=== PATIENT | male | born 1970 | race Caucasian/White ===

== ENCOUNTER 2022-05-19 18:23 | Inpatient (IN) | payer OTHER ==
[~2022-05-19] VITALS: Ht 182.9 cm; Wt 99.3 kg
[2022-05-19 18:29] VITALS: BP 129/74
[2022-05-19] MEDS ORDERED: NITROGLYCERIN 0.4 MG TAB SL ONE (19:00)
[2022-05-19] MEDS ORDERED: FUROSEMIDE 20 MG/2 ML VIAL IVP ONE (19:00)
[2022-05-19 19:14] LABS: BASOPHILS % (AUTO) 0.6 % (0.0-2.0); EOSINOPHILS # (AUTO) 0.2 K/uL (0-0.4); EOSINOPHILS % (AUTO) 2.9 % (0.0-4.0); HEMATOCRIT 40.1 % (36-52); HEMOGLOBIN 13.6 g/dL (12.0-18.0); LYMPHOCYTES # (AUTO) 2.4 K/uL (2.0-11.5); LYMPHOCYTES % (AUTO) 35.2 % (20.5-51.1); MEAN CORPUSCULAR HEMOGLOBIN 31 pg (27-31); MEAN CORPUSCULAR HGB CONC 34 g/dL (33-37); MONOCYTES # (AUTO) 0.6 K/uL (0.8-1.0); MONOCYTES % (AUTO) 8.2 % (1.7-9.3); NEUTROPHILS # (AUTO) 3.6 K/uL (1.8-7.7); NEUTROPHILS % (AUTO) 53.1 % (42.2-75.2); PLATELET COUNT (AUTO) 212 K/uL (140-450); RED BLOOD CELL COUNT(AUTO) 4.41 MIL/uL (4.20-6.10); RED CELL DISTRIBUTION WIDTH 13.6 % (11.6-13.7); WHITE BLOOD COUNT (AUTO) 6.8 K/uL (4.8-10.8)
--- NOTE | 2022-05-19 19:26 | NUR ---
AT THIS TIME PT DENIES ANY C/P. DID NOT GIVE NITRO AT THIS TIME. BRAYAN TOUSSAINT MADE AWARE.
[2022-05-19 19:34] LABS: ALBUMIN 3.2 g/dL (3.4-5.0); ANION GAP 10.4 (8-16); CARBON DIOXIDE 29.9 mmol/L (21-32); CREATININE 0.9 mg/dL (0.6-1.3); POTASSIUM 4.3 mmol/L (3.5-5.1); TOTAL BILIRUBIN 0.6 mg/dL (0.0-1.0)
[2022-05-19 19:37] LABS: MAGNESIUM 1.7 mg/dL (1.8-2.4)
[2022-05-19] MEDS ORDERED: MAG SULF 2000 MG/WATER PREMIX 50 ML IV ONE (19:45)
[2022-05-19] MEDS ORDERED: DILTIAZEM 25 MG/5 ML VIAL IVP ONE (20:20)
--- NOTE | 2022-05-19 20:20 | NUR ---
SWABBED PATIENT AND SENT TO LAB
[2022-05-19] MEDS ORDERED: ONDANSETRON 4 MG/2 ML VIAL IVP PRN (20:55)
[2022-05-19] MEDS ORDERED: ACETAMINOPHEN 325 MG TAB PO PRN (20:55)
[2022-05-19] MEDS ORDERED: ZOLPIDEM 5 MG TAB PO PRN (20:55)
[2022-05-19] MEDS ORDERED: HYDROcodone/APAP 5/325 MG 1 TAB TAB PO PRN (20:55)
[2022-05-19] MEDS ORDERED: LORazepam 1 MG TAB PO PRN (20:55)
--- NOTE | 2022-05-19 20:56 | NUR ---
PLACED 2 L O2 VIA NC FOR COMFORT. PT OXYGEN SATURATION 89%
[2022-05-19 21:26] LABS: BARBITURATE, URINE NEGATIVE ng/ml (NEG <=200); BENZODIAZEPINE, URINE NEGATIVE ng/mL (NEG <=200); CANNABINOID, URINE NEGATIVE ng/mL (NEG <=50); COCAINE, URINE NEGATIVE ng/mL (NEG <=300); OPIATE, URINE NEGATIVE ng/mL (NEG <=2000); PHENCYCLIDINE SCREEN,URINE NEGATIVE ng/mL (NEG <=25)
--- NOTE | 2022-05-19 21:29 | NUR ---
Patient will be admitted to care of Nash TOUSSAINT. Admited to Telemetry. Will go to room 111a. Belongings list completed. Report to David VELAZQUEZ.
[2022-05-19 21:33] VITALS: BP 105/79
--- NOTE | 2022-05-19 21:35 | NUR ---
RECEIVED PT FROM ER VIA [facility]. PT IS AAOX4 ON RA. PT WAS ON 2L NC IN THE ER WHEN HE WAS SATING 89%. PT IS CURRENTLY SATING 98%. PT IS AMBULATORY. GAIT STEADY. PT HAS LEFT AC 20 GAUGE WITH MAG RIDER CURRENTLY RUNNING. SKIN INTACT. PT EDUCATED GREY WASHER LIGHT SYSTEM. PLAN OF CARE DISCUSSED. WILL CONTINUE TO MONITOR THE PT.
[2022-05-19] MEDS ORDERED: AMLO10TA PO (21:40)
[2022-05-19] MEDS ORDERED: FURO-572 PO (21:40)
[2022-05-19] MEDS ORDERED: LISI2.5T12 PO (21:40)
[2022-05-19] MEDS: DILTIAZEM 30 MG TAB PO SCH (23:30)
--- NOTE | 2022-05-19 23:38 | NUR ---
SCHEDULE MEDICATION GIVEN. NO ADVERSE REACTION NOTED. PT HAS NO COMPLAINS AT THIS TIME. VITAL SIGNS. STABLE. WILL CONTINUE TO MONITOR THE PT.
[2022-05-20] VITALS: BP 118/88
--- NOTE | 2022-05-20 01:05 | NUR ---
PT IS SLEEPING COMFORTABLY IN BED. PT NOT IN ANY RESPIRATORY DISTRESS. VISIBLE RISE AND CHEST FALL. CALL LIGHT WITHIN REACH. WILL CONTINUE TO MONITOR THE PT.
--- NOTE | 2022-05-20 02:35 | NUR ---
PT OBSERVED. PT IS SLEEPING WITH NO ACUTE DISTRESS. VISIBLE RISE AND CHEST FALL. CALL LIGHT WITHIN REACH. WILL CONTINUE TO MONITOR THE PT.
[2022-05-20 04:00] VITALS: BP 118/94
[2022-05-20] MEDS: DILTIAZEM 30 MG TAB PO SCH ×2 (05:05→12:29)
--- NOTE | 2022-05-20 07:15 | NUR ---
ENDORSED PT TO DAY SHIFT RN MATTHEW FOR CONTINUITY OF CARE. PT IS STABLE.
--- NOTE | 2022-05-20 07:16 | NUR ---
RECEIVED BEDSIDE REPORT FROM NIGHTSHIFT MARCUS ZHANG. PT IS ON ROOM AIR. PT IS A&OX4 CURRENTLY AWAKE AND RESTING WITH NO S/S OF DISTRESS. PT HAS IV ON LEFT AC 20 GAUGE ON LEFT FOREARM SALINE LOCK PATENT AND INTACT. BED IN LOWEST POSITION, CALL LIGHT WITHIN REACH.
[2022-05-20 07:50] LABS: BASOPHILS # (AUTO) 0.1 K/uL (0.00-0.22); BASOPHILS % (AUTO) 0.7 % (0.0-2.0); EOSINOPHILS # (AUTO) 0.1 K/uL (0-0.4); LYMPHOCYTES # (AUTO) 2.2 K/uL (2.0-11.5); LYMPHOCYTES % (AUTO) 31.1 % (20.5-51.1); MEAN CORPUSCULAR HEMOGLOBIN 31 pg (27-31); MEAN CORPUSCULAR HGB CONC 34 g/dL (33-37); MEAN CORPUSCULAR VOLUME 90.4 fL (80-94); MONOCYTES # (AUTO) 0.6 K/uL (0.8-1.0); MONOCYTES % (AUTO) 8.2 % (1.7-9.3); NEUTROPHILS # (AUTO) 4.1 K/uL (1.8-7.7); PLATELET COUNT (AUTO) 210 K/uL (140-450); RED BLOOD CELL COUNT(AUTO) 4.54 MIL/uL (4.20-6.10); RED CELL DISTRIBUTION WIDTH 13.7 % (11.6-13.7); WHITE BLOOD COUNT (AUTO) 7.1 K/uL (4.8-10.8)
[2022-05-20 08:00] VITALS: BP 135/98
[2022-05-20 08:02] LABS: ALBUMIN 3.3 g/dL (3.4-5.0); ANION GAP 15.4 (8-16); CARBON DIOXIDE 25.5 mmol/L (21-32); CREATININE 0.8 mg/dL (0.6-1.3); POTASSIUM 3.9 mmol/L (3.5-5.1); TOTAL BILIRUBIN 0.9 mg/dL (0.0-1.0)
--- NOTE | 2022-05-20 08:28 | NUR ---
RECIEVED CRITICAL GLUCOSE LEVEL OF 443 FROM LAB. CHECKED PT'S FINGERSTICK GLUCOSE, GLUCOSE READ 372. PT DENIED ANY SYMPTOMS, AND DENIED ANY PRIOR HISTORY OF DIABETES MELLITUS. NOTIFIED DR. BURRIS, NEW ORDERS FOR ACHS ACCUCHECKS, AND INSULIN SLIDING SCALE GIVEN.
[2022-05-20] MEDS ORDERED: DEXTROSE 50% 50 ML SYR IVP PRN (08:30)
[2022-05-20] MEDS ORDERED: BLOOD GLUCOSE MONITORING 1 DEV DEV FS PRN (08:35)
[2022-05-20] MEDS: INSULIN LISPRO SLIDING SCALE 100 UNITS/ML VIAL SUBQ PRN ×3 (08:49→20:24)
[2022-05-20] MEDS: DOCUSATE SODIUM 100 MG GELCAP PO SCH (08:56)
[2022-05-20] MEDS: FUROSEMIDE 40 MG/4 ML VIAL IVP SCH ×3 (08:57→17:07)
[2022-05-20] MEDS ORDERED: ENOXAPARIN 40 MG/0.4 ML SYR SUBQ SCH (09:00)
[2022-05-20 12:00] VITALS: BP 129/94
[2022-05-20] MEDS: BLOOD GLUCOSE MONITORING 1 DEV DEV FS SCH ×3 (12:16→20:24)
--- NOTE | 2022-05-20 12:30 | NUR ---
PATIENT HAS BEEN SCREENED AND CATEGORIZED MODERATE NUTRITION RISK. PATIENT WILL BE SEEN WITHIN 3-5 DAYS OF ADMISSION. 05/22/[address]
--- NOTE | 2022-05-20 13:48 | NUR ---
LATE ENTRY- MAGNESIUM SULFATE DISCONTINUED AT 2128.
[2022-05-20 16:00] VITALS: BP 119/79
--- NOTE | 2022-05-20 19:18 | NUR ---
ENDORSED PT TO NIGHTSHIFT NURSE VICENTE FOR CONTINUITY OF CARE. PT IN STABLE CONDITION.
--- NOTE | 2022-05-20 19:20 | NUR ---
RECEIVED REPORT FROM MATTHEW FOR CONTINUITY OF CAR.E PT IS AAOX4 ON RA. PT IS NOT IN ANY ACUTE DISTRESS. PT HAS LEFT AC 20 GAUGE SALINE LOCK. PT ABLE TO AMBULATE. GAIT STEADY. PLAN OF CARE DISCUSSED. WILL CONTINUE TO MONITOR THE PT.
[2022-05-20 20:00] VITALS: BP 124/92
--- NOTE | 2022-05-20 20:30 | NUR ---
PT BLOOD GLUCOSE WAS 309. 8 UNITS OF HUMALOG GIVEN. NO OTHER COMPLAINS. VITAL SIGNS ARE STABLE.
[2022-05-21] VITALS: BP 129/95
--- NOTE | 2022-05-21 00:47 | NUR ---
PT IS SLEEPING COMFORTABLY IN BED. PT NOT IN ANY ACUTE DISTRESS. CALL LIGHT WITHIN REACH. WILL CONTINUE TO MONITOR THE PT.
--- NOTE | 2022-05-21 02:18 | NUR ---
PT IS SLEEPING COMFORTABLY IN BED. PT NOT IN ANY ACUTE DISTRESS. CALL LIGHT WITHIN REACH. WILL CONTINUE TO MONITOR THE PT.
[2022-05-21 04:00] VITALS: BP 123/93
--- NOTE | 2022-05-21 04:26 | NUR ---
PT IS SLEEPING COMFORTABLY IN BED. PT NOT IN ANY ACUTE DISTRESS. CALL LIGHT WITHIN REACH. WILL CONTINUE TO MONITOR THE PT.
[2022-05-21] MEDS: BLOOD GLUCOSE MONITORING 1 DEV DEV FS SCH ×2 (06:30→11:37)
[2022-05-21] MEDS: INSULIN LISPRO SLIDING SCALE 100 UNITS/ML VIAL SUBQ PRN ×2 (06:36→12:07)
[2022-05-21 07:06] LABS: BASOPHILS # (AUTO) 0.1 K/uL (0.00-0.22); BASOPHILS % (AUTO) 0.7 % (0.0-2.0); EOSINOPHILS # (AUTO) 0.2 K/uL (0-0.4); EOSINOPHILS % (AUTO) 3.2 % (0.0-4.0); HEMATOCRIT 43.2 % (36-52); HEMOGLOBIN 14.7 g/dL (12.0-18.0); LYMPHOCYTES # (AUTO) 2.5 K/uL (2.0-11.5); LYMPHOCYTES % (AUTO) 32.6 % (20.5-51.1); MEAN CORPUSCULAR HEMOGLOBIN 31 pg (27-31); MEAN CORPUSCULAR HGB CONC 34 g/dL (33-37); MEAN CORPUSCULAR VOLUME 90.1 fL (80-94); MONOCYTES # (AUTO) 0.7 K/uL (0.8-1.0); MONOCYTES % (AUTO) 8.8 % (1.7-9.3); NEUTROPHILS # (AUTO) 4.2 K/uL (1.8-7.7); NEUTROPHILS % (AUTO) 54.7 % (42.2-75.2); PLATELET COUNT (AUTO) 246 K/uL (140-450); RED CELL DISTRIBUTION WIDTH 13.6 % (11.6-13.7); WHITE BLOOD COUNT (AUTO) 7.7 K/uL (4.8-10.8)
[2022-05-21 07:07] LABS: ALBUMIN 3.1 g/dL (3.4-5.0); CARBON DIOXIDE 29.3 mmol/L (21-32); CREATININE 0.7 mg/dL (0.6-1.3); MAGNESIUM 1.6 mg/dL (1.8-2.4); POTASSIUM 3.3 mmol/L (3.5-5.1); TOTAL BILIRUBIN 1.1 mg/dL (0.0-1.0)
--- NOTE | 2022-05-21 07:16 | NUR ---
ENDORSED PT TO DAY SHIFT RN AENTA FOR CONTINUITY OF CARE. PT IS STABLE.
[2022-05-21 08:00] VITALS: BP 113/80
--- NOTE | 2022-05-21 08:00 | NUR ---
RECEIVED PT IN BED AWAKE A/OX4 ASSESSMENT COMPLETED PLAN OF CARE REVIEWED. PT ENDORSES IF BLOOD NEEDS TO BE DRAWN HE WILL JUST WALK OUT PT ENDORSES 30 VIALS TAKEN. PT MADE AWARE OF PLAN OF CARE AND IMPORTANCE OF LAB DRAWS PT CALM AFTER EXPLANATION CALL LIGHT IN REACH DENIES PAIN AND NO DISTRESS NOTED AT THIS TIME WILL CONTINUE TO MONITOR AND ASSESS
[2022-05-21] MEDS: DOCUSATE SODIUM 100 MG GELCAP PO SCH (08:54)
[2022-05-21] MEDS: FUROSEMIDE 40 MG/4 ML VIAL IVP SCH ×2 (08:54→13:12)
[2022-05-21] MEDS ORDERED: RIVAROXABAN 10 MG TAB PO SCH (09:00)
[2022-05-21] MEDS ORDERED: lisinopriL 5 MG TAB PO SCH (09:00)
[2022-05-21] MEDS ORDERED: METOPROLOL SUCCINATE 50 MG TABER PO SCH (09:00)
--- NOTE | 2022-05-21 11:27 | NUR ---
BLOOD GLUCOSE 421MG/DL MD BURRIS PAGED AWAITING A RESPONSE
[2022-05-21 12:00] VITALS: BP 107/73
--- NOTE | 2022-05-21 12:04 | NUR ---
NO CALL BACK FROM MD BURRIS PAGED X2 BLOOD GLUCOSE RECHECKED 370MG/DL WILL TREAT PER SLIDING SCALE ORDERED NO DISTESS NOTED
--- NOTE | 2022-05-21 12:41 | NUR ---
PAGED FOR K LEVEL 3.3 AWAITING A RETURN RESPONSE
[2022-05-21] MEDS ORDERED: POTASSIUM CHLORIDE 10 MEQ TABER PO SCH (13:27)
[2022-05-21 13:49] VITALS: BP 107/73
[2022-05-21 13:55] VITALS: BP 107/73
[2022-05-21] MEDS ORDERED: FURO-570 PO (13:59)
[2022-05-21] MEDS ORDERED: XAR10 PO (13:59)
[2022-05-21] MEDS ORDERED: METO50TE2 PO (13:59)
[2022-05-21] MEDS ORDERED: GLIP5TER PO (13:59)
[2022-05-21] MEDS ORDERED: METF-346 PO (13:59)
[2022-05-21] MEDS ORDERED: LISI5TAB24 PO (13:59)
[2022-05-21] MEDS ORDERED: MAG SULF 2000 MG/WATER PREMIX 50 ML IV SCH (14:00)
--- NOTE | 2022-05-21 15:04 | NUR ---
DISCHARGE INSTRUCTIONS GIVEN PT VERBALIZES UNDERSTANDING PT MADE AWARE OF NEW MEDICATIONS DIABETIC TEACHING GIVEN IMPORTANCE OF DIABETIC DIET AND TAKING MEDICATIONS PRESCIBED AWAITING TO ARRIVE AND MAG SULFATE TO INFUSE STABLE NO DITRESS DENIES PAIN
--- NOTE | 2022-05-21 16:00 | NUR ---
ASSISSTED PT TO FRONT LOBBY LEFT IN PRIVATE CAR WITH MADE AWARE TO TURNING MACHINE OPERATOR HELPER RX AT PREFERRED PHARMACY AND TAKE MEDICATIOS PRESCRIBED UNDERSTANDING VERBALIZED AND NO DISTRESS NOTED
== END 2022-05-21 16:00 | disposition home or self-care (01) | DRG 194 ==
LOC: MED 18:23 → MTU 20:57
PROVIDERS: ADMIT Internal Medicine; ATTEND Internal Medicine
DX: I11.0 Hypertensive heart disease with heart failure (principal); E44.1 Mild protein-calorie malnutrition; R65.10 Systemic inflammatory response syndrome (SIRS) of non-infectious origin without acute organ dysfunction; I42.9 Cardiomyopathy, unspecified; E11.8 Type 2 diabetes mellitus with unspecified complications; I48.20 Chronic atrial fibrillation, unspecified; I50.23 Acute on chronic systolic (congestive) heart failure; F17.210 Nicotine dependence, cigarettes, uncomplicated; F15.10 Other stimulant abuse, uncomplicated; Z20.822 Contact with and (suspected) exposure to COVID-19; Z91.199 Patient's noncompliance with other medical treatment and regimen due to unspecified reason; Z68.29 Body mass index [BMI] 29.0-29.9, adult
CPT/HCPCS: 36415; 36600; 71045; 80053; 80305; 82803; 82948; 83036; 83605; 83735; 83880; 84484; 85025; 87040; 87081; 93005; 96365; 96375; 99285; J1650; J1815; J1940; J3475; J3490